=== PATIENT | male | born 1940 | race Native Hawaiian/Other Pacific Islander ===

== ENCOUNTER 2019-06-02 08:33 | Emergency (ER) | payer OTHER ==
[~2019-06-02] VITALS: Ht 180.3 cm; Wt 74.8 kg
[2019-06-02 10:38] VITALS: BP 135/81; TEMP 97.9
== END 2019-06-02 10:58 | disposition short-term general hospital (02) ==
LOC: ED 08:33
DX: S62.522B Displaced fracture of distal phalanx of left thumb, initial encounter for open fracture (principal); W29.8XXA Contact with other powered hand tools and household machinery, initial encounter; Y92.89 Other specified places as the place of occurrence of the external cause
CPT/HCPCS: 90471; 90715; 96372; 99283; J0696

== ENCOUNTER 2019-06-02 10:59 | Outpatient (CLI) | payer OTHER | END 2019-06-02 12:20 | disposition short-term general hospital (02) | LOC: AMB 10:59 | DX: S61.012A Laceration without foreign body of left thumb without damage to nail, initial encounter (principal) | CPT/HCPCS: A0425; A0427 ==